=== PATIENT | female | born 1990 | race African-American/Black ===

== ENCOUNTER 2018-08-06 18:21 | Emergency (ER) | payer OTHER ==
--- OUTSIDE RECORDS SUMMARY | 2018-08-06 18:23 | XMS REPORT | Clinical Summary ---
:1990 Author Organization [facility] Address [address] [place] [address] Care Team Providers Name Role Phone Asked, No Pcp Primary Care Provider Unavailable Allergies No Known Allergies Current Medications Not on file Active Problems Not on file Social History Tobacco Use Types Packs/Day Years Used Date Current Some Day Smoker Alcohol Use Drinks/Week oz/Week Comments No Sex Assigned at Date Recorded Not on file Last Filed Vital Signs Not on file Plan of Treatment Not on file Results Not on fileafter 08/05/2017
[2018-08-06 19:15] LABS: Urine Blood NEGATIVE (NEG); Urine Glucose NEGATIVE (NEG); Urine Protein NEGATIVE (NEG); Urine Specific Gravity 1.025 (1.005-1.030)
[2018-08-06] MEDS ORDERED: ACETAMINOPHEN 325 MG TABLET ONE (19:44)
--- NOTE | 2018-08-06 20:09 | ER ---
Nurse's Notes [facility] Name: Axel Guardado Age: 28 yrs Sex: Female : 1990 Arrival Date: 08/06/2018 Time: 18:24 Bed 28 Private MD: Diagnosis: Pain in right wrist; related conditions, unspecified, third trimester Presentation: 08/06 18:35 Presenting complaint: Patient states: wrist pain and swelling to R wrist for the past 7 ch days. no trauma. it hurts when I move it a certain direction I am . I am 30 weeks. Transition of care: patient was not received from another setting of care. Onset of symptoms was July 30, 2018. Risk Assessment: Do you want to hurt yourself or someone else? Patient reports no desire to harm self or others. Initial Sepsis Screen: Does the patient meet any 2 criteria? No. Patient's initial sepsis screen is negative. Does the patient have a suspected source of infection? No. Patient's initial sepsis screen is negative. Care prior to arrival: None. 18:35 Method Of Arrival: Ambulatory 18:35 Acuity: GENARO 4 Triage Assessment: 18:37 General: Appears in no apparent distress. comfortable, Behavior is calm, cooperative, ch appropriate for age. Pain: Complains of pain in right wrist. EXPEDITER SERVICE ORDER: 18:37 LMP 01/06/2018 Historical: - Allergies: 18:36 No Known Allergies; - Home Meds: 18:36 Vitamin Oral [Active]; - PMHx: 18:36 Bronchitis; - PSHx: 18:37 D \T\ C; - Immunization history:: Adult Immunizations. - Social history:: Smoking status: Patient/guardian denies using tobacco, Patient/guardian denies using alcohol, street drugs. - Ebola Screening: : Patient negative for fever greater than or equal to 101.5 degrees Fahrenheit, and additional compatible Ebola Virus Disease symptoms Patient denies exposure to infectious person Patient denies travel to an Ebola-affected area in the 21 days before illness onset No symptoms or risks identified at this time. - Family history:: not pertinent. Screenin:58 Abuse screen: Denies threats or abuse. Nutritional screening: No deficits noted. la1 Tuberculosis screening: No symptoms or risk factors identified. Fall Risk None identified. Assessment: 18:58 General: Appears in no apparent distress. Behavior is calm, cooperative. Pain: la1 Complains of pain in right wrist. Neuro: Level of Consciousness is awake, alert, obeys commands. Cardiovascular: Patient's skin is warm and dry. Respiratory: Airway is patent Respiratory effort is even, unlabored, Respiratory pattern is regular, symmetrical. GI: No signs and/or symptoms were reported involving the gastrointestinal system. : No signs and/or symptoms were reported regarding the genitourinary system. Musculoskeletal: Circulation, motion, and sensation intact. Capillary refill < 3 seconds. Musculoskeletal: Reports pain in right wrist. Vital Signs: 18:37 BP 149 / 95; Pulse 85; Resp 16; Temp 98.3; Pulse Ox 99% on R/A; Weight 132.9 kg; Height ch 5 ft. 5 in. (165.10 cm); Pain 8/10; 18:37 Body Mass Index 48.76 (132.90 kg, 165.10 cm) ED Course: 18:24 Patient arrived in ED. rg4 18:36 Triage completed. ch 18:37 Arm band placed on left wrist. Patient placed in an exam room, on a stretcher. ch 18:39 Kris Marroquin, TANYA is Primary Nurse. la1 18:58 Call light in reach. Side rails up X 1. la1 19:03 Fede Morton MD is Attending Physician. chelsie 19:42 FHT 146. la1 20:08 Cl Pitts MD is Referral Physician. chelsie 20:13 Scottie wrap to right wrist, IP of right thumb, MCP of right thumb and CMC of right thumb jp3 Orthoglass splint: Thumb spica splint applied on right forearm. 20:29 No provider procedures requiring assistance completed. Patient did not have IV access la1 during this emergency room visit. 20:33 Wrist Left (2 View) XRAY In Process Unspecified. EDMS Administered Medications: 19:43 Drug: Tylenol 650 mg Route: PO; la1 19:55 Follow up: Response: No adverse reaction la1 Outcome: 20:08 Discharge ordered by . chelsie 20:29 Discharged to home ambulatory. la1 20:29 Condition: stable 20:29 Discharge instructions given to patient, Instructed on discharge instructions, follow up and referral plans. medication usage, Demonstrated understanding of instructions, follow-up care, medications. 20:29 Patient left the ED. la1 Signatures: Dispatcher [employer] EDAlyce aMo, Fede Rockwell RN, ch, MD MD cha Attema, Lee, RN RN la1 Garcia, Rubi rg4 Roger Reed jp3
--- NOTE | 2018-08-06 20:09 | EDPHYS ---
Physician Documentation [facility] Name: Axel Guardado Age: 28 yrs Sex: Female : 1990 Arrival Date: 08/06/2018 Time: 18:24 Bed 28 Private MD: ED Physician Fede Morton HPI: 08/06 19:32 This 28 yrs old Black Female presents to ER via Ambulatory with complaints of Wrist chelsie Pain. 19:32 The patient or guardian reports decreased range of motion, pain. The complaints affect chelsie the right wrist diffusely. Context: The problem was sustained at home. Onset: The symptoms/episode began/occurred 7 day(s) ago. Modifying factors: The symptoms are alleviated by holding still, splinting, the symptoms are aggravated by movement, dependent position. Associated signs and symptoms: The patient has no apparent associated signs or symptoms. Compartment Syndrome negative for pain. The patient has not experienced similar symptoms in the past. PSYCHOLOGIST EDUCATIONAL: 18:37 LMP 01/06/2018 ch Historical: - Allergies: 18:36 No Known Allergies; ch - Home Meds: 18:36 Vitamin Oral [Active]; ch - PMHx: 18:36 Bronchitis; ch - PSHx: 18:37 D \T\ C; ch - Immunization history:: Adult Immunizations. - Social history:: Smoking status: Patient/guardian denies using tobacco, Patient/guardian denies using alcohol, street drugs. - Ebola Screening: : Patient negative for fever greater than or equal to 101.5 degrees Fahrenheit, and additional compatible Ebola Virus Disease symptoms Patient denies exposure to infectious person Patient denies travel to an Ebola-affected area in the 21 days before illness onset No symptoms or risks identified at this time. - Family history:: not pertinent. ROS: 19:32 Constitutional: Negative for fever, chills, and weight loss, Eyes: Negative for injury, chelsie pain, redness, and discharge, ENT: Negative for injury, pain, and discharge, Neck: Negative for injury, pain, and swelling, Cardiovascular: Negative for chest pain, palpitations, and edema, Respiratory: Negative for shortness of breath, cough, wheezing, and pleuritic chest pain, Abdomen/GI: Negative for abdominal pain, nausea, vomiting, diarrhea, and constipation, Back: Negative for injury and pain, : Negative for injury, bleeding, discharge, and swelling, Skin: Negative for injury, rash, and discoloration, Neuro: Negative for headache, weakness, numbness, tingling, and seizure, Psych: Negative for depression, anxiety, suicide ideation, homicidal ideation, and hallucinations, Allergy/Immunology: Negative for hives, rash, and allergies, Endocrine: Negative for neck swelling, polydipsia, polyuria, polyphagia, and marked weight changes, Hematologic/Lymphatic: Negative for swollen nodes, abnormal bleeding, and unusual bruising. 19:32 MS/extremity: Positive for injury or acute deformity, decreased range of motion, of the dorsal aspect of right wrist. Exam: 19:32 Constitutional: This is a well developed, well nourished patient who is awake, alert, chelsie and in no acute distress. Head/Face: Normocephalic, atraumatic. Eyes: Pupils equal round and reactive to light, extra-ocular motions intact. Lids and lashes normal. Conjunctiva and sclera are non-icteric and not injected. Cornea within normal limits. Periorbital areas with no swelling, redness, or edema. ENT: Nares patent. No nasal discharge, no septal abnormalities noted. Tympanic membranes are normal and external auditory canals are clear. Oropharynx with no redness, swelling, or masses, exudates, or evidence of obstruction, uvula midline. Mucous membranes moist. Neck: Trachea midline, no thyromegaly or masses palpated, and no cervical lymphadenopathy. Supple, full range of motion without nuchal rigidity, or vertebral point tenderness. No Meningismus. Chest/axilla: Normal chest wall appearance and motion. Nontender with no deformity. No lesions are appreciated. Cardiovascular: Regular rate and rhythm with a normal S1 and S2. No gallops, murmurs, or rubs. Normal PMI, no JVD. No pulse deficits. Respiratory: Lungs have equal breath sounds bilaterally, clear to auscultation and percussion. No rales, rhonchi or wheezes noted. No increased work of breathing, no retractions or nasal flaring. Back: No spinal tenderness. No costovertebral tenderness. Full range of motion. Skin: Warm, dry with normal turgor. Normal color with no rashes, no lesions, and no evidence of cellulitis. Neuro: Awake and alert, GCS 15, oriented to person, place, time, and situation. Cranial nerves II-XII grossly intact. Motor strength 5/5 in all extremities. Sensory grossly intact. Cerebellar exam normal. Normal gait. Psych: Awake, alert, with orientation to person, place and time. Behavior, mood, and affect are within normal limits. 19:32 Abdomen/GI: Inspection: gravid appearance, Bowel sounds: normal, Palpation: abdomen is soft and non-tender, Liver: no appreciated palpable abnormalities, Hernia: not appreciated. Vital Signs: 18:37 BP 149 / 95; Pulse 85; Resp 16; Temp 98.3; Pulse Ox 99% on R/A; Weight 132.9 kg; Height ch 5 ft. 5 in. (165.10 cm); Pain 8/10; 18:37 Body Mass Index 48.76 (132.90 kg, 165.10 cm) Procedures: 19:32 Splinting: Splint applied to dorsal aspect of right wrist applied by tech. Patient chelsie tolerated well. MDM: 19:03 Patient medically screened. [facility] 19:32 Data reviewed: vital signs, nurses notes, lab test result(s), radiologic studies, plain [facility] films. 08/06 18:54 Order name: Urine Dipstick--Ancillary (enter results); Complete Time: 19:30 08/06 18:54 Order name: Urine --Ancillary (enter results); Complete Time: 19:30 08/06 19:32 Order name: Wrist Left (2 View) XRAY [facility] 08/06 19:32 Order name: Thumb Spica Splint; Complete Time: 20:14 [facility] 08/06 19:32 Order name: Ice pack; Complete Time: 19:42 [facility] 08/06 19:32 Order name: FHT's; Complete Time: 19:42 [facility] Administered Medications: 19:43 Drug: Tylenol 650 mg Route: PO; la1 19:55 Follow up: Response: No adverse reaction la1 Disposition: 08/06/18 20:08 Discharged to Home. Impression: Pain in right wrist, related conditions, unspecified, third trimester. - Condition is Stable. - Discharge Instructions: Wrist Pain, Third Trimester of , [id number]. - Medication Reconciliation Form, Thank You Letter, Antibiotic Education, Prescription Opioid Use, Work release form form. - Follow up: Private Physician; When: 2 - 3 days; Reason: Recheck today's complaints, Continuance of care, Re-evaluation by your physician. Follow up: Cl Pitts; When: 2 - 3 days; Reason: Recheck today's complaints, Continuance of care, Re-evaluation by your physician. - Problem is new. - Symptoms have improved. Signatures: Dispatcher [employer] EDMS Alyce Bains, RN Fede Rockwell ch, MD MD cha Attema, Lee, RN RN la1 Corrections: (The following items were deleted from the chart) 20:29 20:08 08/06/2018 20:08 Discharged to Home. Impression: Pain in right wrist; la1 related conditions, unspecified, third trimester. Condition is Stable. Discharge Instructions: Wrist Pain, Third Trimester of , [id number]. Forms are Medication Reconciliation Form, Thank You Letter, Antibiotic Education, Prescription Opioid Use. Follow up: Private Physician; When: 2 - 3 days; Reason: Recheck today's complaints, Continuance of care, Re-evaluation by your physician. Follow up: Cl Pitts; When: 2 - 3 days; Reason: Recheck today's complaints, Continuance of care, Re-evaluation by your physician. Problem is new. Symptoms have improved. chelsie
--- NOTE | 2018-08-06 20:45 | RAD REPORT ---
EXAM DESCRIPTION: RAD - Wrist Left 2 View - 08/06/2018 8:33 pm CLINICAL HISTORY: Left wrist pain status post injury FINDINGS: No fracture or dislocation is seen. If the patient continues to have symptoms to suggest an occult fracture then MRI would be recommended
[2018-08-06 22:01] VITALS: BP 149/95; TEMP 98.3; O2SAT 99
== END 2018-08-06 20:29 | disposition home or self-care (01) ==
LOC: ER 18:21
DX: M25.531 Pain in right wrist (principal)
CPT/HCPCS: 81003; 81025; 99283

== ENCOUNTER 2018-10-20 13:31 | Emergency (ER) | payer OTHER ==
--- OUTSIDE RECORDS SUMMARY | 2018-10-20 13:33 | XMS REPORT ---
:1990 [facility] Address [address] [place] [address] Dr. [address] [place] [address] Care Team Providers Name Role Phone Unavailable Unavailable Unavailable Problems This patient has no known problems. Allergies, Adverse Reactions, Alerts This patient has no known allergies or adverse reactions. Medications This patient has no known medications.
--- OUTSIDE RECORDS SUMMARY | 2018-10-20 13:33 | XMS REPORT | Clinical Summary ---
:1990 Author Organization [facility] Address [address] [place] [address] Care Team Providers Name Role Phone Asked, No Pcp Primary Care Provider Unavailable Allergies No Known Allergies Medications Not on file Active Problems Not on file Social History Tobacco Use Types Packs/Day Years Used Date Current Some Day Smoker Alcohol Use Drinks/Week oz/Week Comments No Sex Assigned at Date Recorded Not on file Job Start Date Occupation Industry Not on file Not on file Not on file Travel History Travel Start Travel End No recent travel history available. Last Filed Vital Signs Not on file Plan of Treatment Not on file Results Not on fileafter 10/19/2017 Advance Directives Patient has advance care planning documents on file. For more information, please contact:Basim Rodriguez[address] [place] [address]
--- NOTE | 2018-10-20 13:50 | ER ---
Nurse's Notes [facility] Name: Axel Guardado Age: 28 yrs Sex: Female : 1990 Arrival Date: 10/20/2018 Time: 13:34 Bed 23 Private MD: None, None Diagnosis: Infection of obstetric surgical wound Presentation: 10/20 13:43 Presenting complaint: Patient states: Had a C section 2 weeks ago, and now reports foul ss odor x 2 days. Denies fever. Transition of care: patient was not received from another setting of care. Onset of symptoms was October 18, 2018. Risk Assessment: Do you want to hurt yourself or someone else? Patient reports no desire to harm self or others. Initial Sepsis Screen: Does the patient meet any 2 criteria? No. Patient's initial sepsis screen is negative. Does the patient have a suspected source of infection? Yes: Skin breakdown/wound. Care prior to arrival: None. 13:43 Method Of Arrival: Ambulatory ss 13:43 Acuity: GENARO 5 ss 13:43 Acuity: GENARO 5 ss MOTEL MAID: 13:50 LMP N/A - Recent ed1 Historical: - Allergies: 13:46 No Known Allergies; ss - PMHx: 13:46 Bronchitis; ss - PSHx: 13:46 D \T\ C; c section; ss - Immunization history:: Adult Immunizations up to date. - Social history:: Smoking status: Patient uses tobacco products, smokes one-half pack cigarettes per day. - Ebola Screening: : Patient denies exposure to infectious person Patient denies travel to an Ebola-affected area in the 21 days before illness onset. Screenin:50 Abuse screen: Denies threats or abuse. Denies injuries from another. Nutritional ed1 screening: No deficits noted. Tuberculosis screening: No symptoms or risk factors identified. Fall Risk None identified. Assessment: 13:50 General: Appears in no apparent distress. Behavior is calm, cooperative. Pain: ed1 Complains of pain in suprapubic area Pain does not radiate. Pain currently is 4 out of 10 on a pain scale. Quality of pain is described as aching, Pain began 2-3 days ago. Is continuous. Neuro: Level of Consciousness is awake, alert, obeys commands, Oriented to person, place, time, situation. Cardiovascular: Denies chest pain, Heart tones S1 S2 present. Respiratory: Airway is patent Respiratory effort is even, unlabored, Respiratory pattern is regular, symmetrical, Breath sounds are clear bilaterally. GI: No signs and/or symptoms were reported involving the gastrointestinal system. : No signs and/or symptoms were reported regarding the genitourinary system. EENT: No signs and/or symptoms were reported regarding the EENT system. Derm: Skin is healthy with good turgor, Skin is dry, Skin is normal, Skin temperature is warm Wound noted suprapubic area Wound is approximated Other: reports purulent drainage. Musculoskeletal: Circulation, motion, and sensation intact. 14:00 General: The previous assessment is accurate, call light remains within reach. . Vital Signs: 13:46 BP 143 / 99; Pulse 83; Resp 16; Pulse Ox 100% on R/A; Weight 131.54 kg; Height 5 ft. 5 ss in. (165.10 cm); Pain 4/10; 13:46 Body Mass Index 48.26 (131.54 kg, 165.10 cm) ED Course: 13:34 Patient arrived in ED. sb2 13:35 None, None is Private Physician. sb2 13:36 Caroline South LVN is Primary Nurse. ed1 13:36 Samanta Barton FNP is [facility]. ma 13:36 Cristobal Dugan MD is Attending Physician. ma 13:45 Triage completed. ss 13:46 Arm band placed on right wrist. ss 13:50 Patient has correct armband on for positive identification. Bed in low position. Call ed1 light in reach. Pulse ox on. NIBP on. 13:57 No provider procedures requiring assistance completed. Patient did not have IV access ed1 during this emergency room visit. Administered Medications: No medications were administered Outcome: 13:49 Discharge ordered by . nh 13:57 Discharged to home ambulatory. ed1 13:57 Condition: good 13:57 Discharge instructions given to patient, Instructed on discharge instructions, follow up and referral plans. medication usage, Demonstrated understanding of instructions, follow-up care, medications, Prescriptions given X 1. 13:58 Patient left the ED. ed1 Signatures: Samanta Barton FNP [employer] ma Aga Munguia RN RN Caroline South LVN COM[employer]ED [employer] SUPERVISOR ed1 Marisabel Snider sb2
--- NOTE | 2018-10-20 13:50 | EDPHYS ---
Physician Documentation [facility] Name: Axel Guardado Age: 28 yrs Sex: Female : 1990 Arrival Date: 10/20/2018 Time: 13:34 Bed 23 Private MD: None, None ED Physician Cristobal Dugan HPI: 10/20 13:44 This 28 yrs old Black Female presents to ER via Unassigned with complaints of Post nh Surgical Pain. 13:44 Onset: The symptoms/episode began/occurred this morning. Associated signs and nh symptoms:. Modifying factors: The patient symptoms are alleviated by nothing, the patient symptoms are aggravated by movement. The patient has not experienced similar symptoms in the past. The patient has not recently seen a physician. Patient had 2 weeks ago. Noticed a foul odor today and some drainage. 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 - Social history:: Smoking status: Patient uses tobacco products, smokes one-half pack cigarettes per day. - Ebola Screening: : Patient denies exposure to infectious person Patient denies travel to an Ebola-affected area in the 21 days before illness onset. ROS: 13:44 Constitutional: Negative for fever, chills, and weight loss, Eyes: Negative for injury, nh pain, redness, and discharge, ENT: Negative for injury, pain, and discharge, Neck: Negative for injury, pain, and swelling, Cardiovascular: Negative for chest pain, palpitations, and edema, Respiratory: Negative for shortness of breath, cough, wheezing, and pleuritic chest pain, Abdomen/GI: Negative for abdominal pain, nausea, vomiting, diarrhea, and constipation, Back: Negative for injury and pain, : Negative for injury, bleeding, discharge, and swelling, MS/Extremity: Negative for injury and deformity, Neuro: Negative for headache, weakness, numbness, tingling, and seizure, Psych: Negative for depression, anxiety, suicide ideation, homicidal ideation, and hallucinations, Allergy/Immunology: Negative for hives, rash, and allergies, Endocrine: Negative for neck swelling, polydipsia, polyuria, polyphagia, and marked weight changes, Hematologic/Lymphatic: Negative for swollen nodes, abnormal bleeding, and unusual bruising. 13:44 Skin: Positive for small amount of purulent discharge. Exam: 13:44 Constitutional: This is a well developed, well nourished patient who is awake, alert, nh and in no acute distress. Head/Face: Normocephalic, atraumatic. Eyes: Pupils equal round and reactive to light, extra-ocular motions intact. Lids and lashes normal. Conjunctiva and sclera are non-icteric and not injected. Cornea within normal limits. Periorbital areas with no swelling, redness, or edema. ENT: Nares patent. No nasal discharge, no septal abnormalities noted. Tympanic membranes are normal and external auditory canals are clear. Oropharynx with no redness, swelling, or masses, exudates, or evidence of obstruction, uvula midline. Mucous membranes moist. Neck: Trachea midline, no thyromegaly or masses palpated, and no cervical lymphadenopathy. Supple, full range of motion without nuchal rigidity, or vertebral point tenderness. No Meningismus. Chest/axilla: Normal chest wall appearance and motion. Nontender with no deformity. No lesions are appreciated. Cardiovascular: Regular rate and rhythm with a normal S1 and S2. No gallops, murmurs, or rubs. Normal PMI, no JVD. No pulse deficits. Respiratory: Lungs have equal breath sounds bilaterally, clear to auscultation and percussion. No rales, rhonchi or wheezes noted. No increased work of breathing, no retractions or nasal flaring. Abdomen/GI: Soft, non-tender, with normal bowel sounds. No distension or tympany. No guarding or rebound. No evidence of tenderness throughout. Back: No spinal tenderness. No costovertebral tenderness. Full range of motion. Skin: Warm, dry with normal turgor. Normal color with no rashes, no lesions, and no evidence of cellulitis. MS/ Extremity: Pulses equal, no cyanosis. Neurovascular intact. Full, normal range of motion. Neuro: Awake and alert, GCS 15, oriented to person, place, time, and situation. Cranial nerves II-XII grossly intact. Motor strength 5/5 in all extremities. Sensory grossly intact. Cerebellar exam normal. Normal gait. Psych: Awake, alert, with orientation to person, place and time. Behavior, mood, and affect are within normal limits. Vital Signs: 13:46 BP 143 / 99; Pulse 83; Resp 16; Pulse Ox 100% on R/A; Weight 131.54 kg; Height 5 ft. 5 ss in. (165.10 cm); Pain 4/10; 13:46 Body Mass Index 48.26 (131.54 kg, 165.10 cm) ss MDM: 13:37 Patient medically screened. az 13:44 Data reviewed: vital signs, nurses notes, and as a result, I will discharge patient. az Counseling: I had a detailed discussion with the patient and/or guardian regarding: the historical points, exam findings, and any diagnostic results supporting the discharge/admit diagnosis, the need for outpatient follow up, to return to the emergency department if symptoms worsen or persist or if there are any questions or concerns that arise at home. Administered Medications: No medications were administered Disposition: 14:01 Co-signature as Attending Physician, Cristobal Dugan MD. rn Disposition: 10/20/18 13:49 Discharged to Home. Impression: Infection of obstetric surgical wound. - Condition is Stable. - Discharge Instructions: Wound Infection. - Prescriptions for Clindamycin HCl 300 mg Oral Capsule - take 1 capsule by ORAL route every 6 hours for 10 days; 40 capsule. - Medication Reconciliation Form, Thank You Letter, Antibiotic Education, Prescription Opioid Use form. - Follow up: Private Physician; When: 2 - 3 days; Reason: Recheck today's complaints. - Problem is new. - Symptoms are unchanged. Signatures: Samanta Barton, INDIVIDUAL PENSION CONSULTANT [facility] Cristobal Dugan MD MD rn Smirch, Shelby, RN RN Caroline South LVN CASE MANAGER ed1 Corrections: (The following items were deleted from the chart) 13:58 13:49 10/20/2018 13:49 Discharged to Home. Impression: Infection of obstetric surgical ed1 wound. Condition is Stable. Forms are Medication Reconciliation Form, Thank You Letter, Antibiotic Education, Prescription Opioid Use. Follow up: Private Physician; When: 2 - 3 days; Reason: Recheck today's complaints. Problem is new. Symptoms are unchanged. az
[2018-10-20 14:31] VITALS: BP 143/99; O2SAT 100
== END 2018-10-20 13:58 | disposition home or self-care (01) ==
LOC: ER 13:31
DX: O86.00 Infection of obstetric surgical wound, unspecified (principal); F17.210 Nicotine dependence, cigarettes, uncomplicated
CPT/HCPCS: 99283

== ENCOUNTER 2019-06-23 05:31 | Emergency (ER) | payer OTHER, SELFPAY ==
--- OUTSIDE RECORDS SUMMARY | 2019-06-23 05:34 | XMS REPORT | Clinical Summary ---
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
--- OUTSIDE RECORDS SUMMARY | 2019-06-23 05:34 | XMS REPORT ---
:1990 [facility] Address [address] [place] [address] [address] [place] [address] Care Team Providers Name Role Phone Unavailable Unavailable Unavailable Problems This patient has no known problems. Allergies, Adverse Reactions, Alerts This patient has no known allergies or adverse reactions. Medications This patient has no known medications.
--- NOTE | 2019-06-23 06:18 | EDPHYS ---
Physician Documentation [facility] Name: Axel Guardado Age: 29 yrs Sex: Female : 1990 Arrival Date: 06/23/2019 Time: 05:35 Bed 18 Private MD: ED Physician Christian Montes De Oca HPI: 06/23 05:50 This 29 yrs old Black Female presents to ER via Ambulatory with complaints of Sore kb Throat. 05:50 The patient presents with sore throat. The patient describes throat pain as constant. kb Onset: The symptoms/episode began/occurred 5 day(s) ago. Severity of symptoms: At their worst the symptoms were moderate, in the emergency department the symptoms are unchanged. Modifying factors: The symptoms are alleviated by nothing, the symptoms are aggravated by swallowing, Patient's oral intake status: limited fluid intake, limited food intake, Denies contact with similarly ill indivduals. Associated signs and symptoms: Pertinent positives: flu-like symptoms, headache, rhinorrhea, Sore throat. The patient has not experienced similar symptoms in the past. The patient has not recently seen a physician. Pt c/o sore throat, runny nose, headache, cough, congestion for 5 days. States other symptoms have improved, but sore throat continues. Denies fever. . 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 - Social history:: Smoking status: Patient uses tobacco products, smokes one-half pack cigarettes per day. - Ebola Screening: : Patient negative for fever greater than or equal to 101.5 degrees Fahrenheit, and additional compatible Ebola Virus Disease symptoms. ROS: 05:52 Constitutional: Negative for fever, chills, and weight loss, Neck: Negative for injury, kb pain, and swelling, Cardiovascular: Negative for chest pain, palpitations, and edema, Respiratory: Negative for shortness of breath, cough, wheezing, and pleuritic chest pain, Abdomen/GI: Negative for abdominal pain, nausea, vomiting, diarrhea, and constipation, MS/Extremity: Negative for injury and deformity, Skin: Negative for injury, rash, and discoloration, Neuro: Negative for headache, weakness, numbness, tingling, and seizure. 05:52 ENT: Positive for rhinorrhea, sinus congestion, sore throat. Exam: 05:52 Constitutional: This is a well developed, well nourished patient who is awake, alert, kb and in no acute distress. Head/Face: Normocephalic, atraumatic. Neck: Trachea midline, no thyromegaly or masses palpated, and no cervical lymphadenopathy. Supple, full range of motion without nuchal rigidity, or vertebral point tenderness. No Meningismus. Chest/axilla: Normal chest wall appearance and motion. Nontender with no deformity. No lesions are appreciated. Cardiovascular: Regular rate and rhythm with a normal S1 and S2. No gallops, murmurs, or rubs. Normal PMI, no JVD. No pulse deficits. Respiratory: Lungs have equal breath sounds bilaterally, clear to auscultation and percussion. No rales, rhonchi or wheezes noted. No increased work of breathing, no retractions or nasal flaring. Abdomen/GI: Soft, non-tender, with normal bowel sounds. No distension or tympany. No guarding or rebound. No evidence of tenderness throughout. Skin: Warm, dry with normal turgor. Normal color with no rashes, no lesions, and no evidence of cellulitis. MS/ Extremity: Pulses equal, no cyanosis. Neurovascular intact. Full, normal range of motion. Neuro: Awake and alert, GCS 15, oriented to person, place, time, and situation. Cranial nerves II-XII grossly intact. Motor strength 5/5 in all extremities. Sensory grossly intact. Cerebellar exam normal. Normal gait. 05:52 ENT: Posterior pharynx: Airway: normal, no evidence of obstruction, Tonsils: with erythema, Uvula: normal, midline, swelling, that is mild, erythema, that is moderate. Vital Signs: 05:49 BP 163 / 112; Pulse 93; Resp 16 S; Temp 98.1(O); Pulse Ox 100% on R/A; Weight 117.93 kg jd3 (R); Height 5 ft. 5 in. (165.10 cm) (R); Pain 8/10; 06:27 BP 152 / 103; Pulse 90; Resp 17 S; Pulse Ox 100% on R/A; jd3 05:49 Body Mass Index 43.27 (117.93 kg, 165.10 cm) jd3 MDM: 05:47 Patient medically screened. kb 05:52 Data reviewed: vital signs, nurses notes. Data interpreted: Pulse oximetry: on room air kb is 100 %. Interpretation: normal. 06:15 Counseling: I had a detailed discussion with the patient and/or guardian regarding: the kb historical points, exam findings, and any diagnostic results supporting the discharge/admit diagnosis, lab results, the need for outpatient follow up, a family practitioner, to return to the emergency department if symptoms worsen or persist or if there are any questions or concerns that arise at home. 06/23 05:45 Order name: Strep jd3 06/23 05:47 Order name: Flu; Complete Time: 06:15 kb 06/23 06:12 Order name: Throat Culture EDMS Administered Medications: 06:27 Drug: GI Cocktail without - (Maalox Suspension 30 ml, Lidocaine Liquid 2 % 15 jd3 ml) Route: PO; 06:28 Follow up: Response: Medication administered at discharge. jd3 Disposition: 09:31 Co-signature as Attending Physician, Christian Montes De Oca MD I agree with the assessment and kdr plan of care. Disposition: 06/23/19 06:16 Discharged to Home. Impression: Acute pharyngitis. - Condition is Stable. - Discharge Instructions: Pharyngitis, Lfrw-di-Spud. - Medication Reconciliation Form, Thank You Letter, Antibiotic Education, Prescription Opioid Use form. - Follow up: Emergency Department; When: As needed; Reason: Worsening of condition. Follow up: Private Physician; When: 2 - 3 days; Reason: Recheck today's complaints, Continuance of care, Re-evaluation by your physician. Signatures: Dispatcher [employer] EDMS Shantel Pizano, MORTEZA ELDER-Christian Flowers MD MD kdr Davies, Jonathon, RN RN jd3 Corrections: (The following items were deleted from the chart) 06:28 06:16 06/23/2019 06:16 Discharged to Home. Impression: Acute pharyngitis. Condition is jd3 Stable. Forms are Medication Reconciliation Form, Thank You Letter, Antibiotic Education, Prescription Opioid Use. Follow up: Emergency Department; When: As needed; Reason: Worsening of condition. Follow up: Private Physician; When: 2 - 3 days; Reason: Recheck today's complaints, Continuance of care, Re-evaluation by your physician. kb
--- NOTE | 2019-06-23 06:18 | ER ---
Nurse's Notes [facility] Name: Axel Guardado Age: 29 yrs Sex: Female : 1990 Arrival Date: 06/23/2019 Time: 05:35 Bed 18 Private MD: Diagnosis: Acute pharyngitis Presentation: 06/23 05:45 Presenting complaint: Patient states: "I have had a sore throat and a cough for about 5 jd3 days now. I thought it was just a head cold, but it has just got worse.". Transition of care: patient was not received from another setting of care. Onset of symptoms was June 23, 2019. Risk Assessment: Do you want to hurt yourself or someone else? Patient reports no desire to harm self or others. Initial Sepsis Screen: Does the patient meet any 2 criteria? No. Patient's initial sepsis screen is negative. Does the patient have a suspected source of infection? No. Patient's initial sepsis screen is negative. Care prior to arrival: None. 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 - Social history:: Smoking status: Patient uses tobacco products, smokes one-half pack cigarettes per day. - Ebola Screening: : Patient negative for fever greater than or equal to 101.5 degrees Fahrenheit, and additional compatible Ebola Virus Disease symptoms. Screenin:53 Abuse screen: Denies threats or abuse. Nutritional screening: No deficits noted. jd3 Tuberculosis screening: No symptoms or risk factors identified. Fall Risk Ambulatory Aid- None/Bed Rest/Nurse Assist (0 pts). Gait- Normal/Bed Rest/Wheelchair (0 pts) Mental Status- Oriented to own ability (0 pts). Total Rawls Fall Scale indicates No Risk (0-24 pts). Assessment: 05:50 General: Appears in no apparent distress. uncomfortable, Behavior is calm, cooperative, jd3 appropriate for age. Pain: Complains of pain in throat Quality of pain is described as aching. Neuro: Level of Consciousness is awake, alert, obeys commands, Oriented to person, place, time, situation. Cardiovascular: Capillary refill < 3 seconds Patient's skin is warm and dry. Respiratory: Reports cough that is non-productive, Airway is patent Respiratory effort is even, unlabored, Respiratory pattern is regular, symmetrical, Breath sounds are clear bilaterally. Denies shortness of breath. GI: No signs and/or symptoms were reported involving the gastrointestinal system. : No signs and/or symptoms were reported regarding the genitourinary system. EENT: Throat is reddened has patchy exudate on right on left. Derm: Skin is intact, Skin is dry, Skin is normal, Skin temperature is warm. Musculoskeletal: Circulation, motion, and sensation intact. Range of motion: intact in all extremities. Vital Signs: 05:49 BP 163 / 112; Pulse 93; Resp 16 S; Temp 98.1(O); Pulse Ox 100% on R/A; Weight 117.93 kg jd3 (R); Height 5 ft. 5 in. (165.10 cm) (R); Pain 8/10; 06:27 BP 152 / 103; Pulse 90; Resp 17 S; Pulse Ox 100% on R/A; jd3 05:49 Body Mass Index 43.27 (117.93 kg, 165.10 cm) jd3 ED Course: 05:35 Patient arrived in ED. ag3 05:46 Triage completed. jd3 05:47 Shantel Pizano [facility]-C [facility]. kb 05:47 Christian Montes De Oca MD is Attending Physician. kb 05:50 Arm band placed on. jd3 05:54 Patient has correct armband on for positive identification. Bed in low position. Call j light in reach. Side rails up X 1. 06:19 Beka Millan, TANYA is Primary Nurse. jd3 06:27 No provider procedures requiring assistance completed. Patient did not have IV access jd3 during this emergency room visit. Administered Medications: 06:27 Drug: GI Cocktail without - (Maalox Suspension 30 ml, Lidocaine Liquid 2 % 15 jd3 ml) Route: PO; 06:28 Follow up: Response: Medication administered at discharge. jd3 Outcome: 06:16 Discharge ordered by . crystal 06:27 Discharged to home ambulatory. jd3 06:27 Condition: stable 06:27 Discharge instructions given to patient, Instructed on discharge instructions, follow up and referral plans. Demonstrated understanding of instructions, follow-up care. 06:28 Patient left the ED. jd3 Signatures: Shantel Pizano, ROGERIOC Beka Serrano RN RN jd3 Katelyn Diamond
[2019-06-23] MEDS ORDERED: LIDOCAINE VISCOUS 2% SOLN 15 ML UDC ONE (06:22)
[2019-06-23] MEDS ORDERED: MAGNE/ALUM HYDROXD 30 ML UCUP ONE (06:22)
[2019-06-23 06:41] VITALS: TEMP 98.1; O2SAT 100
[2019-06-23 06:42] VITALS: BP 152/103
== END 2019-06-23 06:28 | disposition home or self-care (01) ==
LOC: ER 05:31
DX: J02.9 Acute pharyngitis, unspecified (principal); I10 Essential (primary) hypertension; F17.210 Nicotine dependence, cigarettes, uncomplicated
CPT/HCPCS: 87070; 87081; 87804; 99283

== ENCOUNTER 2022-08-21 19:57 | Emergency (ER) | payer OTHER, SELFPAY ==
[2022-08-21] MEDS ORDERED: CYCLOBENZAPRINE 10 MG TAB ONE (21:07)
[2022-08-21] MEDS ORDERED: KETOROLAC 30 MG/ML INJ ONE (21:08)
[2022-08-21] MEDS ORDERED: HYDROCODONE/APAP 5/325 MG TAB ONE (21:08)
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
[2022-08-21 23:55] VITALS: TEMP 98.8; O2SAT 100
[2022-08-21 23:56] VITALS: BP 145/98
== END 2022-08-21 23:11 | disposition home or self-care (01) ==
LOC: ER 19:57
DX: S90.31XA Contusion of right foot, initial encounter (principal); R51.9 Headache, unspecified; V49.40XA Driver injured in collision with unspecified motor vehicles in traffic accident, initial encounter; I10 Essential (primary) hypertension; F17.210 Nicotine dependence, cigarettes, uncomplicated
CPT/HCPCS: 71046; 72100; 96372; 99284

== ENCOUNTER 2023-08-07 18:35 | Emergency (ER) | payer SELFPAY ==
--- OUTSIDE RECORDS SUMMARY | 2023-08-07 18:38 | XMS REPORT | Continuity of Care Document ---
:[address] [facility] t Address [address] [place] [address] Care Team Providers Name Role Phone Asked, No Pcp Primary Care Physician Unavailable Kris Davis MD Attending Clinician CHIKIS ARREDONDO Attending Clinician Unavailable An Chikis LUCIO Attending Clinician [phone] COCO ANAYA Attending Clinician Unavailable Coco Walker Attending Clinician Jose Olivera Attending Clinician Unavailable Doctor Unassigned, [place] Attending Clinician Unavailable NIKHIL SONI Attending Clinician [...] gh 5-30 ity of bleeding bleeding 00:00: [place] on on 00 Medical Nexplanon Nexplanon Bran ch Morbid Morbid Disease Active Univers obesity obesity 2-15 ity of 00:00: [address] Well woman Well woman Disease Active U nivers exam exam 2-15 ity of 00:00: [place] [facility] Nexplanon Nexplanon Disease Active Uni vers in place in place 2-15 ity of 00:00: [address] Chronic Chronic Disease Active 2017-10 Univers hypertensi hypertensi 2-14 it y of on with on with 00:00: [place] exacerbati exacerbati 00 Me dical on during on during Bran ch , , antepartum antepartum , third , third trimester trimester Research Research Disease Active 2017-10 Unive rs study study 2-14 ity of patient patient 00:00: [address] 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 lesion lesion Repeated (LGSIL) (LGSIL) Tobacco Tobacco Disease Active 2013-10 Univers use use 1-14 ity of disorder disorder 00:00: [address] Allergies, Adverse Reactions, Alerts Allergy Allergy Status Severity Reaction(s) Onset Inactive Treating Comm ents Source Name Type Date Date Clinician NO KNOWN Drug Active Univers ALLERGIE Class ity of S [facility] Social History Social Habit Start Date Stop Date Quantity Comments Source Sexual orientation Method ist Hospital Exposure to 2022-06-09 2022-06-19 Not sure University SARS-CoV-2 (event) 00:00:00 08:20:00 [facility] Tobacco use and 2022-06-19 2022-06-19 Smokeless Universit y of exposure 00:00:00 00:00:00 tobacco non-user [facility] Cigarettes smoked 2022-06-192022-06-19 Univers ity of current (pack per 00:00:00 00:00:00 ) - Reported Branch History of tobacco 2018-12-06 2018-12-06 Cigarette Smoker University of use 00:00:00 00:00:00 [facility] History of Social 2017-04-23 2017-04-[address] function 00:00:00 00:00:00 Hospital Alcohol intake 2017-01-21 2017-01-21 Current Nondenominational 00:00:00 00:00:00 non-drinker of Hospital alcohol (finding) Sex Assigned At [birth year] Nondenominational 00:00:00 00:00:00 Hospital Smoking Status Start Date Stop Date Source Smokes tobacco daily 2022-06-19 00:00:00 Univers ity of [facility] Occasional tobacco smoker 2017-01-21 00:00:00 [facility] Medications Ordered Filled Start Stop Current Ordering Indication Dosage Frequency Signature Comments Components Source Medication Medication Date Date Medication? Clinician (SIG) Name Name metroNIDAZO 2021- No [id number] 2000mg Take 4 Univers LE 500 mg 06-23 tablets by ity of tablet 00:00: 04:59 [place] now for 1 Medical dose. Branch metroNIDAZO 2021- No [id number] 2000mg Take 4 Univers LE 500 mg 06-23 tablets by ity of tablet 00:00: 00:[place] now for 1 Medical dose. Branch HYDROCHLORO Yes Take by Uni vers THIAZIDE 3-25 mouth. ity of ORAL 10:01: [address] amlodipine Yes Take by [facility] ers besylate 3-25 mouth. ity of (AMLODIPINE 10:01: [place] ORAL) [address] [place] [address] HYDROCHLORO Yes Take by Uni vers THIAZIDE 3-25 mouth. ity of ORAL 10:01: [address] amlodipine Yes Take by Univ ers besylate 3-25 mouth. ity of (AMLODIPINE 10:01: [place] ORAL) [address] [place] [address] HYDROCHLORO Yes Take by Uni vers THIAZIDE 3-25 mouth. ity of ORAL 10:01: [address] amlodipine Yes Take by [facility] ers besylate 3-25 mouth. ity of (AMLODIPINE 10:01: [place] ORAL) [address] [place] [address] Vital Signs Vital Name Observation Time Observation Value Comments Source Systolic blood 2022-06-19 13:26:00 110 mm[Hg] Univer sity of pressure [facility] Diastolic blood 2022-06-19 13:26:00 88 mm[Hg] Unive rsity of [facility] Heart rate 2022-06-19 13:20:00 90 /min [facility] Body temperature 2022-06-19 13:20:00 36.17 [place] [facility] Res[facility] rate 2022-06-19 13:20:00 20 /min [facility] Body height 2022-06-19 13:20:00 175.3 cm [facility] Body weight 2022-06-19 13:20:00 141.579 kg [facility] BMI 2022-06-19 13:20:00 46.09 kg/m2 [facility] Procedures This patient has no known procedures. Encounters Start End Encounter Admission Attending Care Care Encounter Source Date/Time Date/Time Type Type Clinicians Facility Department ID 2023-07-16 2023-07-16 Outpatient [facility] [id number] [place] 13:11:27 13:11:27 0925 [facility] 2023-03-16 2023-03-16 Outpatient [facility] [id number] [place] 11:34:20 11:34:20 0526 [facility] 2023-03-09 2023-03-09 Telephone SusanKris [facility] [id number] [facility] 00:00:00 00:00:00 MARIAMA [id number] it y of [id number] [facility] [id number] [address] 2022-11-16 2022-11-16 Outpatient [facility] [id number] [place] 14:54:38 14:54:38 0126 F Shantanu 2022-09-22 2022-09-[address] [facility] [id number] [facility] 08:00:00 08:00:00 CHIKIS abdiy o [facility] 2022-09-22 2022-09-[address] 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 [id number] Univers 08:30:00 08:39:35 MONICAA ity o [facility] 2022-06-19 2022-06-19 Office AnayaRUST [id number] Univers 08:30:00 08:39:35 Visit Coco Bates PAYMENT COLLECTOR [id number] ity [facility] [id number] [place] as MATERNAL [id number] [facility] & CHILD [address] [place] [address] 2022-06-19 2022-06-[address] [facility] [id number] Univers 08:30:00 08:39:35 CHUYNDA ity o [facility] 2022-06-19 2022-06-[address] [facility] [id number] Univers 08:30:00 08:39:35 ROSHUNDA ity o f [facility] 2022-06-15 2022-06-15 Outpatient R AKINSIRIK, [facility] [id number] Univers 13:45:00 13:45:00 CHIKIS ity o f [facility] 2022-06-15 2022-06-15 Outpatient R AKINSIPE, [facility] [id number] Univers 13:45:00 13:45:00 CHIKIS ity o f [facility] 2022-06-10 2022-06-[address] [facility] [id number] Univers 08:15:00 08:15:00 ROSHUNDA ity o f [facility] 2022-03-30 2022-03-30 Outpatient Jarod, CHW CHW [id number] [facility] 10:00:00 10:00:00 [facility] 2022-03-08 2022-03-08 Outpatient Jarod, CHW CHW [id number] [facility] 14:00:00 14:00:00 [facility] 2022-01-13 2022-01-[address] [facility] [id number] [facility] 09:30:00 10:59:17 CHIKIS ralph [facility] 2022-01-13 2022-01-13 Office AnRUST [id number] [facility] 09:30:00 10:59:17 Visit Chikis May PAYMENT COLLECTOR [id number] ity of [facility] [id number] [place] as MATERNAL [id number] Med ical & CHILD [address] [place] [address] 2022-01-13 2022-01-13 Orders Doctor WILLY [id number] Univers 00:00:00 00:00:00 Only Unassigned, MATIAS [id number] ity of [facility] [id number] [place] as [id number] [address] 2021-11-04 2021-11-04 Outpatient CHW CHW [id number] [facility] 13:30:00 13:30:00 [facility] 2019-12-19 2019-12-[address] [facility] [id number] Univers 08:45:00 08:45:00 NIKHIL lucia of [facility] 2019-06-25 2019-06-25 [facility] [id number] [facility] 10:29:17 11:32:00 Tyrone Salvador [id number] i ty [facility] [id number] [id number] [address] Results Test Description Test Time Test Comments Results Result Comments Source COMPREHENSIVE METABOLIC PANEL 2022-07-08 03:11:24 Test Item Value Reference Range Interpretation Comme nts GLUCOSE (test code = 2217) 101 MG/DL 70-99 H BUN (test code = 220) 10 MG/DL 6-20 CREATININE (test code = 1.09 MG/DL 0.60-1.30 2213) eGFR (2020 CKD-EPI) (test 70 ML/MIN/1.73 >60 code = 67697) CALC BUN/CREAT (test code = 9 RATIO 6-28 2234) SODIUM (test code = 2230) 138 MEQ/L 133-146 POTASSIUM (test code = 222) 4.1 MEQ/L 3.5-5.4 CHLORIDE (test code = 2214) 97 MEQ/L 95-107 CARBON DIOXIDE (test code = 30 MEQ/L 19-31 2205) CALCIUM (test code = 2208) 10.1 MG/DL 8.5-10.5 PROTEIN, TOTAL (test code = 7.9 G/DL 6.1-8.3 2228) ALBUMIN (test code = 2200) 4.4 G/DL 3.5-5.2 CALC GLOBULIN (test code [...] code = 2219) 16 U/L 5-40 LIPID [id number] 03:11:24 Test Item Value Reference Range Interpretation [...] MOREINFORMATION , SEE CLIENT ANNOUNCE MENT AT [email or web address] RATIO LDL/HDL 4.54 RATIO <3.22 H UNLESS O THERWISE (test code = 2238) INDICATED , ALL TESTING PERFORMED [facility] PATHOLOGY [facility] [address] [place] [id number] [place] [address] DIRECTOR: ASHLI LOPEZ M.D. CLIA NUMBER [id number] CAP ACCREDITATION N O. [id number]
[2023-08-07 19:50] LABS: Absolute Lymphocytes (CBC) 4.5 K/uL (0.7-4.9); Hematocrit 37.8 % (36.0-45.0); Lymphocytes % 43.4 % (15.3-44.8); MCV 90.9 fL (80-100); MPV 8.1 fL (7.6-11.3); Platelets 341 thou/uL (152-406); RBC Red Blood Cell Count 4.15 M/uL (3.86-4.86)
[2023-08-07 19:54] LABS: Protime INR 0.98
[2023-08-07 20:09] LABS: Magnesium 1.9 mg/dL (1.6-2.4); Potassium 2.9 mEq/L (3.5-5.1); Troponin High Sensitivity 4.2 pg/mL (<58.9)
--- NOTE | 2023-08-07 21:01 | RAD REPORT ---
[facility]07[facility]23 8:12 pm CLINICAL HISTORY: CHEST PAIN COMPARISON: Chest Pa And Lat (2 Views) dated 08/21/2022; Chest Pa And Lat (2 Views) dated 05/24/2016; CHEST SINGLE VIEW dated 02/24/2015; CHEST PA AND LAT 2 VIEW dated 06/23/2009 TECHNIQUE: Portable AP view of the chest. FINDINGS: The lungs show no focal consolidation. Central interstitial prominence may be exacerbated by superimposition of soft tissues, however raises concern for mild central congestion. No pneumotho rax or effusion. The cardiomediastinal contours are unremarkable. IMPRESSION: Possible mild central congestion. No evidence of focal airspace opacity.
[2023-08-07 22:09] LABS: Methadone ND (NEGATIVE)
[2023-08-07 22:11] LABS: Specific Gravity 1.028 (1.005-1.030)
[2023-08-07 22:16] LABS: Specific Gravity 1.028 (1.005-1.030); Urine Bacteria <20 /HPF (<20); Urine Bilirubin NEGATIVE (Negative); Urine Blood Negative (Negative); Urine Clarity Turbid (Clear); Urine Color Light-Yellow (Yellow); Urine Crystals Unidentified Few /HPF (None Seen); Urine Glucose NEGATIVE (Negative); Urine Mucus Slight /HPF (None Seen); Urine Protein NEGATIVE (Negative); Urine RBC <5 /HPF (None Seen); Urine Urobilinogen 1+ (Normal); Urine pH 6.5 (5.0-7.0)
[2023-08-07] MEDS ORDERED: KETOROLAC 30 MG/ML INJ ONE (22:19)
[2023-08-07] MEDS ORDERED: NA CHLORIDE 0.9% 1,000 ML ONE (22:19)
[2023-08-07 22:20] LABS: Barbiturates NEGATIVE (NEGATIVE); Benzodiazepines NEGATIVE (NEGATIVE); Cocaine NEGATIVE (NEGATIVE); METHAMPHETAM NEGATIVE (NEGATIVE); Opiates NEGATIVE (NEGATIVE); Phencyclidine NEGATIVE (NEGATIVE); THC Cannibis POSITIVE (NEGATIVE)
[2023-08-08] MEDS ORDERED: POTASSIUM 25 MEQ EFFERV TAB ONE (00:11)
--- NOTE | 2023-08-08 01:36 | ER ---
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 Coronavirus screen: At this time, the client does not indicate any symptoms associated with coronavirus-19. Ebola Screen: No symptoms or risks identified at this time. Initial Sepsis Screen: Does the patient meet any 2 criteria? No. Patient's initial sepsis screen is negative. Does the patient have a suspected source of infection? No. Patient's initial sepsis screen is negative. Risk Assessment: Do you want to hurt yourself or someone else? Patient reports no desire to harm self or others. Onset of symptoms was August 07, 2023 at 18:30. 18:49 Method Of Arrival: Ambulatory jl7 18:49 Acuity: GENARO 3 jl7 Triage Assessment: 18:54 General: Appears in no apparent distress. uncomfortable, Behavior is calm, cooperative, jl7 appropriate for age. Pain: Complains of pain in anterior aspect of left upper chest Pain radiates to back Pain currently is 0 out of 10 on a pain scale. at worst was 7 out of 10 on a pain scale. Quality of pain is described as sharp. Cardiovascular: Patient's skin is warm and dry. Rhythm is regular. 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 - Social history:: Smoking status: Patient reports the use of cigarette tobacco products, smokes one-half pack cigarettes per day. Screenin:47 [facility] ED Fall Risk Assessment (Adult) Score/Fall Risk Level 0 - 2 = Low Risk nj1 Oriented to surroundings, Maintained a safe environment, Hourly rounding (assess needs \T\ fall precautionary measures) done. Abuse screen: Denies threats or abuse. Denies injuries from another. Nutritional screening: No deficits noted. Tuberculosis screening: No symptoms or risk factors identified. Assessment: 19:46 Reassessment: Patient appears in no apparent distress at this time. No changes from banner previously documented assessment. Patient and/or family updated on plan of care and expected duration. Pain level reassessed. Patient is alert, oriented x 3, equal unlabored respirations, skin warm/dry/pink. 20:45 Reassessment: Patient appears in no apparent distress at this time. No changes from nj1 previously documented assessment. Patient and/or family updated on plan of care and expected duration. Pain level reassessed. Patient is alert, oriented x 3, equal unlabored respirations, skin warm/dry/pink. 22:00 Reassessment: Patient appears in no apparent distress at this time. Patient and/or jb4 family updated on plan of care and expected duration. Pain level reassessed. Patient is alert, oriented x 3, equal unlabored respirations, skin warm/dry/pink. 23:00 Reassessment: Patient appears in no apparent distress at this time. Patient and/or jb4 family updated on plan of care and expected duration. Pain level reassessed. Patient is alert, oriented x 3, equal unlabored respirations, skin warm/dry/pink. 08/08 00:00 Reassessment: Patient appears in no apparent distress at this time. Patient and/or jb4 family updated on plan of care and expected duration. Pain level reassessed. Patient is alert, oriented x 3, equal unlabored respirations, skin warm/dry/pink. 01:54 Reassessment: Patient appears in no apparent distress at this time. Patient and/or jb4 family updated on plan of care and expected duration. Pain level reassessed. Patient is alert, oriented x 3, equal unlabored respirations, skin warm/dry/pink. Vital Signs: 08/07 18:49 BP 135 / 80; Pulse 88; Resp 15; Temp 97.9; Pulse Ox 98% ; Weight 136.98 kg; Height 5 jl7 ft. 5 in. ; Pain 0/10; 19:45 BP 130 / 88; Pulse 82; Resp 16; Pulse Ox 100% ; Pain 0/10; nj1 20:45 BP 137 / 94; Pulse 76; Resp 18; Pulse Ox 99% ; Pain 0/10; nj1 22:00 BP 137 / 84; Pulse 78; Resp 16; Pulse Ox 99% on R/A; jb4 08/08 00:00 BP 110 / 71; Pulse 79; Resp 16; Pulse Ox 100% on R/A; jb4 08/07 18:49 Body Mass Index 50.25 (136.98 kg, 165.1 cm) jl7 08/07 18:49 Pain Scale: Adult jl7 19:45 Pain Scale: Adult nj1 20:45 Pain Scale: Adult nj1 ED Course: 08/07 18:38 Patient arrived in ED. im 18:39 Fede Patrick PA is PHCP. cp 18:39 Gama Ovalles DO is Attending Physician. cp 18:42 Arm band placed on right wrist. EKG completed in triage. Results shown to MD. jl7 18:54 Triage completed. jl7 18:57 Patient placed in waiting room, Patient notified of wait time. jl7 19:34 Mary Diaz, RN is Primary Nurse. nj1 19:40 Patient has correct armband on for positive identification. Bed in low position. Call nj1 light in reach. Adult w/ patient. Provided Education on: call light, fall precautions. Client placed on continuous cardiac and pulse oximetry monitoring. NIBP monitoring applied. 19:42 Inserted saline lock: 22 gauge in right antecubital area, using aseptic technique. nj1 Blood collected. 19:47 No provider procedures requiring assistance completed. Patient maintains SpO2 nj1 saturation greater than 95% on room air. 20:13 XRAY Chest (1 view) In Process Unspecified. EDMS 23:19 CT Chest For PE Angio In Process Unspecified. EDMS 08/08 01:54 IV discontinued, intact, bleeding controlled, No redness/swelling at site. Pressure jb4 dressing applied. Administered Medications: 08/07 22:11 Drug: Ketorolac IVP 15 mg IVP once Route: IVP; Site: right antecubital; jb4 22:11 Drug: NS 0.9% IV 1000 ml IV at 1 bolus Per protocol; 1000 mL bolus Route: IV; Rate: 1 jb4 bolus; Site: right antecubital; 08/08 00:07 Drug: Potassium PO Effervescent Tablet 50 mEq PO once; dissolve in 4 ounces of water or jb4 juice Route: PO; 00:07 Drug: Potassium PO Effervescent Tablet 25 mEq PO once; dissolve in 4 ounces of water or jb4 juice Route: PO; Medication: 01:54 VIS not applicable for this client. jb4 Outcome: 01:35 Discharge ordered by . gladys 01:54 Discharged to home ambulatory, jb4 01:54 Condition: stable 01:54 Discharge instructions given to patient, Instructed on discharge instructions, follow up and referral plans. Demonstrated understanding of instructions, follow-up care, 01:56 Patient left the ED. jb4 Signatures: Dispatcher [employer] EDMS Fede Patrick PA PA cp Bryson, James RN RN jb4 Charly Young RN RN jl7 Mary Diaz RN RN nj1 Kyra Hidalgo
--- NOTE | 2023-08-08 01:36 | EDPHYS ---
Physician Documentation [facility] Name: Axel Guardado Age: 33 yrs Sex: Female : 1990 Arrival Date: 08/07/2023 Time: 18:35 Bed 19 Private MD: ED Physician Gama Ovalles HPI: 08/07 19:00 This 33 yrs old Black Female presents to ER via Ambulatory with complaints of Chest cp Pain. 19:00 The patient or guardian reports chest pain that is located primarily in the anterior cp chest wall, left. 19:00 The pain does not radiate. Associated signs and symptoms: Pertinent negatives: cp abdominal pain, cough, lower extremity pain, lower extremity swelling, syncope, fever. The chest pain is described as sharp. Duration: The patient or guardian reports a single episode, that is still ongoing, but improving. Modifying factors: the symptoms are aggravated by deep breath. 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 - Social history:: Smoking status: Patient reports the use of cigarette tobacco products, smokes one-half pack cigarettes per day. ROS: 19:03 Constitutional: Negative for body aches, chills, fever, poor PO intake, cp 19:03 Cardiovascular: Positive for chest pain, cp 19:03 Eyes: Negative for injury, pain, redness, and discharge, cp 19:03 Respiratory: Negative for cough, shortness of breath, wheezing, cp 19:03 Abdomen/GI: Negative for abdominal pain, vomiting, diarrhea, constipation, 19:03 Back: Negative for pain at rest, pain with movement, radiated pain, 19:03 Neuro: Negative for altered mental status, dizziness, headache, numbness, syncope, near syncope, weakness, 19:03 All other systems are negative, Exam: 18:55 ECG was reviewed by the Attending Physician. cp 19:10 Constitutional: The patient appears in no acute distress, alert, awake, cp non-diaphoretic, non-toxic, well developed, well nourished, obese, 19:10 Head/Face: Normocephalic, atraumatic. cp 19:10 Eyes: Periorbital structures: appear normal, Conjunctiva: normal, no exudate, no injection, Sclera: no appreciated abnormality, Lids and lashes: appear normal, bilaterally, 19:10 ENT: External ear(s): are unremarkable, Nose: is normal, Mouth: Lips: moist, Oral mucosa: pink and intact, moist, Posterior pharynx: is normal, airway is patent, no erythema, no exudate, 19:10 Neck: ROM/movement: is normal, is supple, without pain, no range of motions limitations, 19:10 Chest/axilla: Inspection: normal, 19:10 Cardiovascular: Rate: normal, Rhythm: regular, Edema: is not appreciated, JVD: is not appreciated, 19:10 Respiratory: the patient does not display signs of respiratory distress, Respirations: normal, no use of accessory muscles, no retractions, labored breathing, is not present, Breath sounds: are clear throughout, no decreased breath sounds, no stridor, no wheezing, 19:10 Abdomen/GI: Inspection: obese Palpation: abdomen is soft and non-tender, in all quadrants, 19:10 Back: pain, is absent, ROM is normal, 19:10 Skin: no rash present. 19:10 Neuro: Orientation: to person, place \T\ time. Mentation: is normal, Motor: moves all fours, strength is normal, Sensation: is normal, Vital Signs: 18:49 BP 135 / 80; Pulse 88; Resp 15; Temp 97.9; Pulse Ox 98% ; Weight 136.98 kg; Height 5 jl7 ft. 5 in. ; Pain 0/10; 19:45 BP 130 / 88; Pulse 82; Resp 16; Pulse Ox 100% ; Pain 0/10; nj1 20:45 BP 137 / 94; Pulse 76; Resp 18; Pulse Ox 99% ; Pain 0/10; nj1 22:00 BP 137 / 84; Pulse 78; Resp 16; Pulse Ox 99% on R/A; jb4 08/08 00:00 BP 110 / 71; Pulse 79; Resp 16; Pulse Ox 100% on R/A; jb4 08/07 18:49 Body Mass Index 50.25 (136.98 kg, 165.1 cm) jl7 08/07 18:49 Pain Scale: Adult jl7 19:45 Pain Scale: Adult nj1 20:45 Pain Scale: Adult nj1 MDM: 08/07 18:41 Patient medically screened. 21:00 Differential diagnosis: acute myocardial infarction, acute pericarditis, cholecystitis, cp Cholelithiasis pancreatitis, pleurisy, pneumonia, pneumothorax, pulmonary embolus. 08/08 01:35 Data reviewed: vital signs, nurses notes, lab test result(s), EKG, radiologic studies, cp CT scan, plain films. 01:35 I considered the following discharge prescriptions or medication management in the emergency department Medications were administered in the Emergency Department. See MAR. Independent interpretation of the following test(s) in the Emergency Department EKG: See my EKG interpretation above. Counseling: I had a detailed discussion with the patient and/or guardian regarding the historical points, exam findings, and any diagnostic results supporting the discharge/admit diagnosis, lab results, radiology results, to return to the emergency department if symptoms worsen or persist or if there are any questions or concerns that arise at home. Special discussion: Based on the patient's history, exam, and Dx evaluation, there is no indication for emergent intervention or inpatient Tx. It is understood by the patient/guardian that if the Sx's persist or worsen they need to return immediately for re-evaluation. 08/07 18:53 Order name: Basic Metabolic Panel; Complete Time: 21:47 cp 08/07 21:47 Interpretation: Normal except: K 2.9; CO2 34; ANION GAP 3.9; CRE 1.09; GFR 70. 08/07 18:53 Order name: CBC with Diff; Complete Time: 21:47 08/07 18:53 Order name: D-Dimer; Complete Time: 21:47 cp 08/07 18:53 Order name: Magnesium; Complete Time: 21:47 cp 08/07 18:53 Order name: PT-INR; Complete Time: 21:47 08/07 18:53 Order name: Troponin HS; Complete Time: 21:47 08/07 18:53 Order name: UDS; Complete Time: 23:31 cp 08/07 18:53 Order name: Urine W/Microscopic (UAM); Complete Time: 23:31 cp 08/07 18:53 Order name: PREGU; Complete Time: 23:31 cp 08/07 18:53 Order name: XRAY Chest (1 view); Complete Time: 21:47 cp 08/07 21:48 Order name: CT Chest For PE Angio cp 08/07 18:53 Order name: EKG; Complete Time: 18:54 cp 08/07 18:53 Order name: Cardiac monitoring; Complete Time: 19:34 cp 08/07 18:53 Order name: EKG - Nurse/Tech; Complete Time: 18:57 cp 08/07 18:53 Order name: IV Saline Lock; Complete Time: 19:46 cp 08/07 18:53 Order name: Labs collected and sent; Complete Time: 19:46 cp 08/07 18:53 Order name: O2 Per Protocol; Complete Time: 19:34 cp 08/07 18:53 Order name: O2 Sat Monitoring; Complete Time: 19:34 cp EC/17 18:55 Rate is 93 beats/min. Rhythm is regular. MI interval is normal. QRS interval is normal. cp QT interval is normal. T waves are Inverted in lead aVR. Interpreted by me. Reviewed by me. Administered Medications: 22:11 Drug: Ketorolac IVP 15 mg IVP once Route: IVP; Site: right antecubital; jb4 22:11 Drug: NS 0.9% IV 1000 ml IV at 1 bolus Per protocol; 1000 mL bolus Route: IV; Rate: 1 jb4 bolus; Site: right antecubital; 08/08 00:07 Drug: Potassium PO Effervescent Tablet 50 mEq PO once; dissolve in 4 ounces of water or jb4 juice Route: PO; 00:07 Drug: Potassium PO Effervescent Tablet 25 mEq PO once; dissolve in 4 ounces of water or jb4 juice Route: PO; Disposition: 08/07 21:55 I was immediately available on-site in the Emergency Department for consultation in the ne3 care of the patient. Disposition Summary: 08/08/23 01:35 Discharge Ordered Notes: Location: Home cp Problem: new cp Symptoms: have improved cp Condition: Stable cp Diagnosis - Chest pain, unspecified cp - Hypokalemia cp Followup: cp - With: Private Physician - When: 2 - 3 days - Reason: Recheck today's complaints Discharge Instructions: - Discharge Summary Sheet cp - Nonspecific Chest Pain, Adult cp - Potassium Content of Foods cp - Aspirin and Your Heart cp - Hypokalemia cp Forms: - Medication Reconciliation Form cp - Thank You Letter cp - Antibiotic Education cp - Prescription Opioid Use cp - Patient Portal Instructions cp - Leadership Thank You Letter cp Signatures: Dispatcher [employer] EDMS Fede Patrick PA PA cp Walter De La Cruz RN RN jb4 Charly Young RN RN jl7 Gama Ovalles DO DO ms3 Corrections: (The following items were deleted from the chart) 21:47 21:46 This 33 yrs old Black Female presents to ER via Ambulatory with complaints of cp Chest Pain. cp
[2023-08-08 04:51] VITALS: TEMP 97.9
[2023-08-08 05:05] VITALS: BP 110/71; O2SAT 100
--- NOTE | 2023-08-08 12:25 | EKG ---
Test Date: 2023-08-07 Test Time: 18:47:23 Creel Clerk: BOOGIE MEASUREMENT RESULTS: Intervals: Rate: 93 DE: 142 QRSD: 76 QT: 382 QTc: 474 Huson: P: 67 DE: 142 QRS: 59 T: 59 INTERPRETIVE STATEMENTS: Sinus rhythm with marked sinus arrhythmia Otherwise normal ECG Compared to ECG 05/24/2016 14:46:48 No significant changes Electronically Signed On 08-08-23 12:23:38 CDT by Garrett Joe
--- NOTE | 2023-08-08 14:39 | RAD REPORT ---
EXAM DESCRIPTION: CT Angiography Chest With Intravenous Contrast CLINICAL HISTORY: CHEST PAIN TECHNIQUE: Axial computed tomographic angiography images of the chest with intravenous contrast. S agittal and coronal reformatted images were created and reviewed. This CT exam was performed using one or more of the following dose reduction techniques: automated exposure control, adjustment of t he mA and/or kV according to patient size, and/or use of iterative reconstruction technique. MIP reconstructed images were created and reviewed. COMPARISON: No relevant prior studies available. FINDINGS: Artifacts: Motion artifact degrades image quality and limits evaluation of segmental and subsegmental vessels. Limitations: Suboptimal opacification of the pulmonary arterial tree. Pulmonary arteries: See above. Aorta: No acute findings. No thoracic aortic aneurysm. Lungs: Unremarkable. No mass. No consolidation. Pleural space: Unremarkable. No significant effusion. No pneumothorax. Heart: Unremarkable. No cardiomegaly. No significant pericardial effusion. No evidence of RV dysfunction. Bones/joints: No acute fracture. No dislocation. Soft tissues: Unremarkable. Lymph nodes: Unremarkable. No enlarged lymph nodes. IMPRESSION: Nondiagnostic evaluation for pulmonary embolic disease secondary to poor contrast bolus timing resulting in inadequate intravenous contrast opacification of the pulmonary arteries in combin ation with motion artifact. Electronically signed by: Roland Valdez MD 08/08/2023 1:17 AM CDT Due to temporary technical issues with the PACS/Fluency reporting system, reports are being signed by the in house radiologists without review as a courtesy to insure prompt reporting. The interpreting radiologist is fully responsible for the content of the report.
== END 2023-08-08 01:56 | disposition home or self-care (01) ==
LOC: ER 18:35
DX: R07.89 Other chest pain (principal); E87.6 Hypokalemia; I10 Essential (primary) hypertension; F17.210 Nicotine dependence, cigarettes, uncomplicated
CPT/HCPCS: 36415; 71045; 71275; 80048; 80307; 81001; 81025; 83735; 84484; 85025; 85379; 85610; 93005; J7030; Q9967